=== PATIENT | female | born 1940 | race African-American/Black ===

== ENCOUNTER 2017-07-30 08:46 | Day surgery (SDC) | payer BC, MEDICARE ==
--- NOTE | 2017-07-30 06:57 | History and Physical Report ---
DATE: 07/29/2017. CHIEF COMPLAINT AND HISTORY OF CHIEF COMPLAINT: This patient presents with a history of a postlaminectomy radiculitis. The patient does have a history of lumbar spinal fusion with decompression laminectomy. She has profound weakness and numbness as well as pain in both lower extremities. She is essentially nonambulatory and is wheelchair dependent. Due to the failure of all therapy, she is presenting today for an implanted spinal catheter infusion trial with hydromorphone to determine if the implantation of a permanent pump would be of any value in her pain control. PAST MEDICAL HISTORY: Hypothyroidism, cardiac arrhythmia with pacemaker, bladder incontinence, degenerative arthritis, bilateral lower extremity paralysis, difficulty sleeping. SOCIAL HISTORY: Noncontributory. FAMILY HISTORY: Diabetes, coronary artery disease, hypertension, cancer. PAST SURGICAL HISTORY: Extensive; list provided. MEDICATIONS ON ADMISSION: To be provided. ALLERGIES: To be provided. PHYSICAL EXAMINATION: General: Height and weight are not known. Vital Signs: Not available. Musculoskeletal: Current examination shows pain and tenderness primarily through the low back and extending into both lower extremities. There is pain in the neck, shoulder, and arms, but the low back and bilateral lower extremity component is the worst. Her lower extremity functionality is difficult to assess because of paralysis, weakness, and numbness across both the front and back surface of both legs. She cannot hold weight. She cannot lift herself up out of the wheelchair without assistance. Ambulation: Assistive device is utilized. Neurologic: Cranial nerves are intact. IMPRESSION: 1. POST LUMBAR LAMINECTOMY SYNDROME, ICD-10 CODE M96.1. 2. LUMBAR RADICULOPATHY, ICD-10 CODE M54.16 and M54.17. PLAN: This patient is here for an implanted spinal catheter infusion trial with hydromorphone to determine if the implantation of a pump would be of any value in long-term pain control. The procedure has been discussed in detail with the patient and her care analyst. An incision will be made, and the spinal catheter will be placed and anchored, and the incision will be closed. This will help reduce the incidence of side effects. An epidural blood patch will be performed if possible which also should help reduce the incidence of spinal headache. The potential risks, side effects, and complications have been reviewed and discussed including spinal cord injury, paralysis, nerve root injury, and spinal headache. A booklet outlining the procedure, risks, side effects, and complications was initially presented during evaluation and was discussed. She was put in contact and had direct conversation with a [employer] packaging sales representative who also discussed and reviewed the side effects, complications, and procedure. All questions have been answered and reviewed in detail. An overnight stay is being planned; although an outpatient stay is a possibility. JOB NUMBER: [id number] cc: Leslie Pedersen P.A. MTDD
[~2017-07-30 08:46] MED LIST: ACETAMINOPHEN 1,000 MG/100 ML BTL IV ONE; CLINDAMYCIN 600MG/50ML PREMIX 600 MG/50 ML BAG IVPB ONE; FAMOTIDINE 20MG TABLET PO ONE; HYDROMORPHONE PF 2MG/ML AMP 0.008 MG in 0.9 % SODIUM CHLORIDE 10ML VIA 0.996 ML IV ONE; HYDROMORPHONE PF 2MG/ML AMP 4 MG in 0.9 % SODIUM CHLORIDE 500ML 498 ML IV ONE; MECLIZINE 25 MG TABLET PO ONE; METOCLOPRAMIDE 10 MG TABLET PO ONE
[2017-07-30] MEDS ORDERED: BUPIVACAINE 0.5% W/EPI MPF 30 ML VIAL IVP ONE (08:47)
[2017-07-30] MEDS ORDERED: PROPOFOL 10 MG/ML VIAL IV ONE (08:47)
[2017-07-30] MEDS ORDERED: LIDOCAINE 2% MDV (20MG/ML) 20ML VIAL IV ONE (08:47)
[2017-07-30] MEDS ORDERED: LIDOCAINE 1% W/EPI 1:200,000 MPF 30ML SQ ONE (08:47)
[2017-07-30] MEDS ORDERED: FENTANYL PF 100MCG/2ML VIAL IV ONE (08:47)
[2017-07-30] MEDS ORDERED: MIDAZOLAM HCL 2MG/2ML VIAL IV ONE (08:47)
[2017-07-30] MEDS ORDERED: CLINDAMYCIN (PEDIATRIC DOSING) 150 MG/ML VIAL IVPB ONE (08:47)
[2017-07-30] MEDS ORDERED: METOCLOPRAMIDE HCL 10 MG/2 ML VIAL IVP PRN (11:20)
[2017-07-30] MEDS ORDERED: DIPHENHYDRAMINE HCL IV 50 MG/ML VIAL IVP PRN ×2 (11:20)
[2017-07-30] MEDS ORDERED: ACETAMINOPHEN 325 MG TAB PO PRN ×2 (11:20)
[2017-07-30] MEDS ORDERED: DIPHENHYDRAMINE HCL 25 MG CAPSULE PO PRN ×2 (11:20)
[2017-07-30] MEDS ORDERED: AL HYDROX/MAG HYDROX 30ML UD PO PRN (11:20)
[2017-07-30] MEDS ORDERED: HYDROCODONE/APAP 7.5/325MG TABLET PO PRN ×2 (11:20)
[2017-07-30] MEDS ORDERED: OXYCODONE/APAP 10MG-325MG TABLET PO PRN (11:20)
[2017-07-30] MEDS ORDERED: SENNOSIDES/DOCUSATE SODIUM UD CAPSULE PO PRN ×2 (11:20)
[2017-07-30] MEDS ORDERED: HYDROMORPHONE HCL 2 MG/ML VIAL IM PRN (11:20)
[2017-07-30] MEDS ORDERED: METOCLOPRAMIDE 10 MG TABLET PO PRN (11:20)
[2017-07-30] MEDS ORDERED: TEMAZEPAM 15 MG CAPSULE PO PRN ×2 (11:20)
[2017-07-30] MEDS ORDERED: NALOXONE 0.4 MG/1 ML VIAL IVP PRN (11:21)
[2017-07-30] MEDS: OXYCODONE/APAP 10MG-325MG TABLET PO PRN ×2 (14:28→15:13)
[2017-07-30] MEDS ORDERED: LEVOTHYROXINE SODIUM 75 MCG TABLET PO SCH (14:30)
--- NOTE | 2017-07-30 15:52 | Operative Note - [place] ---
DATE OF SURGERY: 07/30/17 PREOPERATIVE DIAGNOSES: 1. POST LUMBAR LAMINECTOMY SYNDROME, ICD-10 CODE = M96.1. 2. LUMBAR RADICULOPATHY, ICD-10 CODE = M54.16 AND M54.17. OPERATION: 1. FLUOROSCOPICALLY-GUIDED ACCESS SPINAL SPACE AT L3/4, PLACEMENT OF THIN- WALLED SPINAL CATHETER T12. 2. DIAGNOSTIC MYELOGRAPHY WITH RADIOLOGIC SUPERVISION AND INTERPRETATION. 3. SPINAL OPIOID BOLUS HYDROMORPHONE AT 0.001 MG SPINAL SPACE. 4. INCISION, SUBCUTANEOUS DISSECTION, AND ANCHORING OF SPINAL CATHETER TO SUPRASPINOUS FASCIA WITH ANCHORING DEVICE AND NONABSORBABLE SUTURE. 5. INCISION, SUBCUTANEOUS DISSECTION, AND CREATION OF SUBCUTANEOUS POUCH AT LEFT POSTERIOR GLUTEAL MARGIN ULTIMATELY FOR PLACEMENT OF PUMP. 6. TUNNELING BETWEEN POUCHES. PLACEMENT OF EXTERNAL SPINAL CATHETER INTO FLANK POUCH. CATHETER RESECTED INTERFACED WITH SECOND CATHETER COMPONENT WITH CONNECTOR. SECOND CATHETER COMPONENT TUNNELED 6 CM SUPERIOR EXITING SKIN. 7. INTERFACE EXTERNAL CATHETER WITH EXTERNAL PUMP SET TO DELIVER HYDROMORPHONE AT 0.04 MG A DAY. 8. NO EPIDURAL BLOOD PATCH. NO ACCESS AVAILABLE. FUSED 3/4 TO 5/1 HARDWARE. SURGEON: TAMARA ARDON D.O. ANESTHESIA: LOCAL SEDATION. ANESTHESIA PROVIDER: KARMEN CAPPS CRNA. INDICATION: This patient presents with a history of post laminectomy radiculitis. Her diagnostics show hardware fusion 3/4 to 5/1. 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 Due to the failure of therapy, she is here for an implanted spinal catheter infusion trial with Hydromorphone to determine if the implantation of a permanent system can be of any value in pain control. PROCEDURE: Intravenous line, vital sign monitoring, IV sedation, prepped, draped, sterile technique. Patient position prone. Sterile prep, sterile technique, and under imaging, the upper level of the hardware at L3 was imaged. At L3/4, spinal access was identified. There would be no blood patch at the lower levels. Skin infiltrated then a 20-gauge spinal needle paramedian approach beveled with a long axis was inserted into the spinal space at L3/4. With CSF flow, a thin-walled spinal catheter was advanced positioned T12. The skin above and below the needle was infiltrated with local, an incision made, and subcutaneous dissection was conducted to the supraspinous fascia. The needle was removed and the catheter was anchored to the supraspinous fascia with an anchoring device and nonabsorbable suture. At the left posterior gluteal margin, a site ultimately for the pump picked by the patient, skin infiltrated, incision made, and subcutaneous dissection was conducted to form a small pouch. The spinal catheter was then tunneled into this pouch. The catheter was then interfaced with a second catheter component by way of a connector. The second catheter component was tunneled superior 6 cm exiting the skin. The external catheter was then interfaced with an external pump, which was set to deliver Hydromorphone at 0.04 mg a day. The midline incision was closed Vicryl for fascia, running subcuticular Vicryl for skin, and a nylon running suture used to close the pouch onto flank. No blood patch performed. Sterile dressing was applied securing the catheter and all connections under sterile dressing. She was transported to the Recovery Room flat. She will be kept flat for four hours, slowly elevated for one, as a standard protocol despite no blood patch. She will be kept overnight for observation. DISCHARGE INSTRUCTIONS: 1. Sites remain clean and dry. No showering or bathing in any way that would disrupt dressings. If it happens, contact the clinic. 2. Standard medications resumed, Levaquin, the antibiotic, 500 mg once a day for 14 days. 3. Spinal opioid side-effects including; respiratory depression, nausea, vomiting, constipation, urinary retention, lightheadedness, or rash have all been discussed and reviewed. All other instructions provided, numbers to contact , problems given. She will be evaluated in the office in the next 2-3 days. Three possible increases will be scheduled; the first in 2-3 days. She will be kept overnight then discharged in the morning. cc: Dr. Garcia and Kayce Holm. JOB NUMBER: [id number] [facility]
[2017-07-30] MEDS: HYDROMORPHONE HCL 2 MG/ML VIAL IM PRN ×2 (17:24→17:37)
[2017-07-30] MEDS: CLINDAMYCIN 600MG/50ML PREMIX 600 MG/50 ML BAG IVPB SCH (17:24)
[2017-07-30] MEDS: RINGERS SOLUTION,LACTATED 1,000 ML IV SCH (17:25)
[2017-07-30] MEDS ORDERED: BACLOFEN 10 MG TABLET PO SCH (22:00)
[2017-07-31] MEDS: CLINDAMYCIN 600MG/50ML PREMIX 600 MG/50 ML BAG IVPB SCH ×2 (02:01→10:35)
[2017-07-31] MEDS: RINGERS SOLUTION,LACTATED 1,000 ML IV SCH ×3 (02:06→13:04)
[2017-07-31] MEDS ORDERED: PREDNISONE 1 MG TABLET PO SCH (08:00)
[2017-07-31] MEDS ORDERED: LACTULOSE 20 GM/30 ML UDC PO SCH (10:00)
[2017-07-31] MEDS ORDERED: FAMOTIDINE 20MG TABLET PO SCH (10:00)
--- NOTE | 2017-07-31 19:56 | RADIOLOGY REPORT ---
EXAM: SPINE, 1 VIEW HISTORY: POST PAIN PUMP TRIAL. TECHNIQUE: Single AP view of the lumbar spine. COMPARISON: None. FINDINGS: The patient is post-op right JS. Post-op lower lumbar fusion from L3 to S1. There has probably been a laminectomy in the lower lumbar spine as well. There is probably a pacemaker/ICD electrode lead partially seen overlying the heart. Diffuse osteopenia consistent with osteoporosis. There is some fine catheter-like density overlying the left mid abdomen. There is also overlying artifact making this somewhat difficult to interpret. There is a tiny metallic round dot overlying the T12 vertebra, which is presumably the superior extent of a tiny intraspinal catheter, although the catheter itself is very difficult to confidently identify. Hazy density in the midline overlying the lower lumbar spine and upper sacrum is probably a small amount of contrast in the spinal canal. Correlation with the procedure suggested. IMPRESSION: 1. STUDY LIMITED BY CONSIDERABLE OVERLYING ARTIFACT. 2. PROBABLE TINY INTRASPINAL CATHETER TIP AT THE T12 LEVEL AND PROBABLY SOME CONTRAST IN THE LOWER SPINAL CANAL, DESCRIBED ABOVE. CORRELATION WITH THE PROCEDURE SUGGESTED. 3. PROMINENT POSTOPERATIVE FINDINGS, DETAILED ABOVE. JOB NUMBER: [id number] [facility]
== END 2017-07-31 12:05 ==
LOC: SUR 08:46 → MEDSURG 12:04 → SUR 07-31 12:05
PROVIDERS: ATTEND Pain Medicine Interventional Pain Medicine
DX: M96.1 Postlaminectomy syndrome, not elsewhere classified (principal); M54.16 Radiculopathy, lumbar region; M54.17 Radiculopathy, lumbosacral region; D86.9 Sarcoidosis, unspecified; E03.9 Hypothyroidism, unspecified; Z95.0 Presence of cardiac pacemaker
CPT/HCPCS: 62350; 00630; 72020; Q9967; J7512; J3010; J1170 ×2; J7040; J7120

== ENCOUNTER 2017-08-13 10:12 | Day surgery (SDC) | payer MEDICARE ==
--- NOTE | 2017-08-13 06:47 | History and Physical Report ---
DATE: 08/12/2017. CHIEF COMPLAINT AND HISTORY OF CHIEF COMPLAINT: This patient presented on 07/29 for an implanted spinal catheter infusion trial with hydromorphone. She arrives today having completed the required trial period, although this patient denied appreciable pain control until the last three to five days. She is here for either removal or implantation of the system. PAST MEDICAL HISTORY: Reviewed and unchanged. PAST SURGICAL HISTORY: Reviewed and unchanged. MEDICATIONS ON ADMISSION: Unchanged. ALLERGIES: Unchanged. REVIEW OF SYSTEMS: The patient is appropriate and in no acute distress. The remainder of the systems review was reviewed and is unchanged. SOCIAL HISTORY: Reviewed and unchanged. FAMILY HISTORY: Reviewed and unchanged. PHYSICAL EXAMINATION: Unchanged. Musculoskeletal: Examination of the musculoskeletal system shows the dressings for the implanted catheter trial. The externalized pump and catheter components are fully intact. Sensory lund are intact. Neurologic: Unchanged. IMPRESSION: 1. POSTLUMBAR LAMINECTOMY SYNDROME, ICD-10 CODE M96.1. 2. LUMBAR RADICULOPATHY, ICD-10 CODE M54.16 AND M54.17. 3. IMPLANTED SPINAL CATHETER INFUSION TRIAL WITH HYDROMORPHONE. PLAN: This patient is here today, having only achieved pain control over the last two to three days. We are essentially at the limits of the current infusion bag. We have three possible options. First, if this is considered unsuccessful, we will remove the implanted catheter, and then the patient will be redirected back to our facility. Second, we could implant the system and increase the relative dose of the hydromorphone from the current delivered dose of 0.08 to 0.16 as a starting dose. Third and perhaps a better option which will, of course, be presented to the patient and her caregiver, would be to remove all of the dressings, remove the external catheter, replace it with a new infusion bag, and essentially restart a one-week trial from this point at the current infusion rate of 0.16 mg a day. She would have one week from the current day to either decide to implant or remove the device. This third option will require that the procedure be done intraoperatively. Using a sterile technique in the operating room, we will remove all of the dressings, keep the spinal catheter intact but remove the external catheter and replace it to the external pump. We will then re-dress sterilely and then reinitiate the trial for one week. The decision will ultimately be made by the patient and her caregiver. JOB NUMBER: [id number] cc: Chantel Curran D.O. MTDD
[~2017-08-13 10:12] MED LIST changes: +HYDROMORPHONE HCL 0.04 GM in 0.9 % SODIUM CHLORIDE 10ML VIA 20 ML IV ONE; +HYDROMORPHONE PF 2MG/ML AMP 0.004 MG in 0.9 % SODIUM CHLORIDE 10ML VIA 0.998 ML IV ONE
--- NOTE | 2017-08-14 07:04 | Operative Note ---
DATE: 08/13/2017. PREOPERATIVE DIAGNOSIS: 1. POSTLUMBAR LAMINECTOMY SYNDROME, ICD-10 CODE M96.1. 2. LUMBAR RADICULOPATHY, ICD-10 CODE M54.16 AND M54.17. 3. IMPLANTED SPINAL CATHETER INFUSION TRIAL WITH HYDROMORPHONE. POSTOPERATIVE DIAGNOSIS: 1. POSTLUMBAR LAMINECTOMY SYNDROME, ICD-10 CODE M96.1. 2. LUMBAR RADICULOPATHY, ICD-10 CODE M54.16 AND M54.17. 3. IMPLANTED SPINAL CATHETER INFUSION TRIAL WITH HYDROMORPHONE. PROCEDURES: 1. Removal of all external dressings exposing the implanted catheter external component. 2. Separation of the external pump from the catheter. 3. New spinal infusion bag with hydromorphone 0.008 mg per mL was then primed and interfaced with the external catheter. The external catheter was interfaced with the new catheter component and was then interfaced to the indwelling catheter. The pump was reprogrammed to deliver hydromorphone from a previous base rate of 0.8 to 1.0 increase in spinal infusion. The catheter components were then redressed and retaped to the skin covering the catheter and all components under sterile dressing. 4. The patient was transported back to Recovery. SURGEON: Kyle Duncan D.O. ANESTHESIA: No sedation and no anesthesia requirement. INDICATIONS: This patient presents with an indwelling spinal catheter infusion trial with hydromorphone. We are extending the catheter trial because of insufficient pain control as well as the patient's inability to make the scheduled appointments for reprogramming. She lives in a facility, and the facility was not able to transport the patient to the office for two of the scheduled three reprogrammings. Because of that, we were never able to program the pump to deliver an adequate amount of opioids to evaluate pain control. She is here today for removal of the current external programmable pump and spinal infusion bag which is partially depleted, removal of the external catheter, and removal of all dressings. We will also replace the pump with a new pump set to deliver hydromorphone at an increased dose. It was previously 0.8 and the current dose is 1.0. The previous delivered dose was 0.16, and the new delivered dose is 0.2 mg a day. Along with the pump, a new infusion bag and new external catheter will be placed to maintain sterility. DESCRIPTION OF PROCEDURE: She was placed in the room. The previous system was removed, and the new system was interfaced. Sterile dressing was applied. She was transported back to Recovery. We will extend her trial by one week at which point we will either remove the indwelling catheter or implant the full system. Appropriate instructions have been provided to the patient and her son who was here at this time. A new opioid for home use within the facility has been written for Oxycodone 20 mg p.r.n. three times a day maximum. All other instructions were provided and numbers to contact for problems were given. She will be discharged back to the facility. cc: Leslie Pedersen
== END 2017-08-13 13:00 | disposition home or self-care (01) ==
LOC: SUR 10:12
PROVIDERS: ATTEND Pain Medicine Interventional Pain Medicine
DX: M54.16 Radiculopathy, lumbar region (principal); M54.17 Radiculopathy, lumbosacral region
CPT/HCPCS: 62350; J1170; J7040